=== PATIENT | male | born 1980 | race Caucasian/White ===

== ENCOUNTER 2017-03-16 18:49 | Inpatient (IN) | payer MEDICAID ==
--- NOTE | ~2017-03-16 | DS ---
Unit #: [id number] #: [id number] Patient: LUIS ALBERTO BARBOSA [id number] [address] [address] [id number] I MR#: [id number] NAME: LUIS ALBERTO BARBOSA ROOM: 565 Age: 36 Sex: M Admission Date: 03/16/2017 : 1980 Discharge Date: 03/18/2017 Attending Physician: Jarred Nino M.D. Primary Care Physician: No Primary Care Physician DISCHARGE SUMMARY Discharge is pending Dr. Alejandre evaluation/Our evaluation. HISTORY OF PRESENT ILLNESS/HOSPITAL COURSE Patient is a 36-year-old male who was brought to the emergency department secondary to confusion. He was brought in by the police. He was agitated, confused, and had an elevated temperature of 99.4. In the emergency room, he was given 20 mg of IM Geodon as well as IV Ativan. Normal saline was administered and subsequently, he was admitted to the floor. It was noted his CPK level was elevated at 1100. Initial diagnosis of acute kidney injury as well as acute rhabdomyolysis was made. Through hospital course, he received IV fluids. His initial creatinine was 2.7 today at time of discharge. His creatinine currently stands at 1.3. His other laboratory studies are within normal limits. His CK level was mildly elevated, but he is now tolerating p.o. well. He was placed on a 72-hour hold as we were unsure of his overall mental status. He does tell me that he has a prior history of paranoid schizophrenia. At this point in time, Dr. Alejandre of psychiatry services as well as Our services have been consulted. Once we await their evaluation later this morning, further disposition will be planned accordingly, eight home versus Our at time of discharge. Patient's other radiological studies including CT head did not show any acute process. HIV screen was negative. Chest x-ray was negative. Urine culture was negative. FINAL DISCHARGE DIAGNOSES 1. Acute kidney injury, now resolved. 2. Acute rhabdomyolysis, now improved. 3. History of polysubstance abuse, initial urine tox screen positive for amphetamines and benzodiazepines. 4. Underlying mental illness, paranoid schizophrenia. DISCHARGE MEDICATIONS Tylenol 650 mg p.o. q.6 p.r.n. DISCHARGE DISPOSITION Unit #: [id number] #: [id number] Patient: LUIS ALBERTO BARBOSA To be determined by Dr. Alejandre as well as [facility]. Dictated by... Margarito Piper/kari TD: 03/18/2017 09:15 JOB #: [id number] DISCHARGE SUMMARY Page 1 of 1 X Jarred Nino MD X DISCHARGE SUMMARY
--- NOTE | ~2017-03-16 | EKG ---
PATIENT: LUIS ALBERTO BARBOSA UNIT #: [id number] Ventricular Rate: 137 BPM Atrial Rate: 137 BPM P-R Interval: 118 ms QRS Duration: 82 ms Q-T Interval: 294 ms QTC Calculation(Bezet): 443 ms P [place]: 82 degrees Calculated R [place]: 88 degrees Calculated T [place]: 54 degrees Diagnosis Line: Sinus tachycardia Diagnosis Line: Possible Left atrial enlargement Diagnosis Line: Borderline ECG Diagnosis Line: Diagnosis Line: Confirmed by SHAINA TIAN MD ([id number]) on Diagnosis Line: 03/17/2017 1:31:46 PM INTERPRETING MD: ASMITA MANN
--- NOTE | ~2017-03-16 | HP ---
Unit #: [id number] #: [id number] Patient: LUIS ALBERTO BARBOSA [id number] [address] [address] [id number] I MR#: [id number] NAME: LUIS ALBERTO BARBOSA ROOM: [facility] Age: 36 Sex: M Admission Date: 03/16/2017 : 1980 Attending Physician: Merly Driscoll M.D. Primary Care Physician: No Primary Care Physician HISTORY AND PHYSICAL ADDENDUM Apparently there are conflicting reports. The patient was previously incarcerated, but unsure at this time if patient truly is an escapee from alf. Will determine when patient is more awake and alert. Dictated by Merly Driscoll M.D. AML/ts TD: 03/17/2017 05:11 JOB #: [id number] HISTORY AND PHYSICAL Page 1 of 1 X Merly Driscoll MD X HISTORY AND PHYSICAL
--- NOTE | ~2017-03-16 | CT71 ---
[facility] A Service of [facility] RADIOLOGY TEXT RESULTS PATIENT: LUIS ALBERTO BARBOSA LOCATION: [facility] 565- : [birth year] UNIT #: [id number] AGE: [address]: Jarred Nino MD SEX: M ORDER DR: [id number] [facility] [address]. [place], [place] [address] [id number] I MR#: [id number] Acc #: [id number] NAME: LUIS ALBERTO BARBOSA : 1980 SEX: M STUDY DATE/TIME: 03/16/2017 20:54 UNIT: CEDOF ROOM: 87849 STUDY DESCRIPTION: CT Head Wo Contrast Attending Physician: Merly Driscoll M.D. Ordering Physician: Ramon Osborne M.D. Primary Care Physician: Primary Care Physician No MEDICAL IMAGING REPORT This report is preliminary unless electronic signature is present EXAM CT of the head without contrast INDICATIONS Confusion today. Overdose. TECHNIQUE CT of the head was performed without contrast. This CT exam was performed with one or more of the following radiation dose reduction techniques: Automatic exposure control, adjustment of mA and/or kV according to patient size, and iterative reconstruction. No comparisons. FINDINGS There is no evidence for intracranial hemorrhage, acute cortical based infarction, focal mass lesion or hydrocephalus. Included orbits and paranasal sinuses are unremarkable. The bone windows are unremarkable. IMPRESSION No acute intracranial abnormality. Dictated by... Volodymyr Clark M.D. THIS IS AN ELECTRONICALLY VERIFIED REPORT Volodymyr Clark M.D. at 03/18/2017 7:27 AM HAILY/matheus TD: 03/17/2017 01:52 JOB #: [id number] MEDICAL IMAGING REPORT Page 1 of 1 COPY
--- NOTE | ~2017-03-16 | CO ---
Unit #: [id number] #: [id number] Patient: LUIS ALBERTO BARBOSA 227440 [address] [place], [place] [address] [id number] I MR#: [id number] NAME: LUIS ALBERTO BARBOSA ROOM: 565 Age: 36 Sex: M Admission Date: 03/16/2017 : 1980 Attending Physician: Jarred Nino M.D. Primary Care Physician: No Primary Care Physician Consultation Date: 03/18/2017 CONSULTATION REPORT REASON FOR CONSULTATION Depression, anxiety, substance abuse. HISTORY OF PRESENT ILLNESS Mr. Herrera is a 36-year-old male seen in room 565 bed-1 on 03/18/17 at [facility]. The patient reports that he has used some drugs and admitted in the hospital. The patient reports that he is doing fine now and ready to go. Patient dressed in hospital attire, lying comfortably in bed. Patient was alert, oriented, cooperative, has a sitter. Denied any thoughts of harming self or others. Denied any psychotic symptoms but admitted that he needs some help for his substance abuse. The patient was admitted in confused state, polysubstance abuse, dehydration, acute kidney injury. Found wandering. Patient needed four point restraints and was given Geodon IM 20 mg. Patient's CPK was 1100 at the time of admission. The patient is responding well with the treatment and agreeable for treatment. PAST PSYCHIATRIC HISTORY Unremarkable for any history of any previous treatment but history of substance abuse as mentioned above. Urine drug screen is positive for benzodiazepine and amphetamines. MEDICAL HISTORY Remarkable for no chronic medical illness but recent history of rhabdomyolysis. MEDICATION HISTORY Please refer to MAR. FAMILY HISTORY/SOCIAL HISTORY Patient reported that he has a good support system. No history of any abuse. History of substance abuse as mentioned above. REVIEW OF SYSTEMS Complete review of systems is unremarkable except as mentioned above. MENTAL STATUS EXAMINATION VITAL SIGNS: 97.4, 71, 18, 122/76. Oxygen saturation 100%. GENERAL APPEARANCE: Patient dressed casually in hospital attire. No facial deformities noted. Multiple tattoos on his body. Attention span and concentration fair. Speech - regular rate, coherent. Oriented in time, place and person. Mood and affect labile. Thought process coherent. Thought content - patient denied any thoughts of harming self or others. Recent and remote memory fair. Language - intact. Fund of Unit #: [id number] #: [id number] Patient: LUIS ALBERTO BARBOSA knowledge fair. Insight and judgment fair to slightly impaired. DIAGNOSIS PSYCHIATRIC: 1. 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 Opiate use disorder, moderate - F11.20 3. Delirium - F05, resolved. SECONDARY DIAGNOSIS Deferred. MEDICAL DIAGNOSIS Please refer to H and P. STRESSORS Psychosocial stressor. ASSESSMENT/PLAN 1. Supportive psychotherapy and psychoeducation provided to patient. 2. Educated about benefits and side effects of medication and course and prognosis of illness. 3. Recommending at this time discontinue sitting and the patient may be discharged home if patient is medically stable and follow up in (1) program at [facility] and also given crisis line number, . Please feel free to call if any questions. Telephone number [phone]. Dictated by... Yohan Alejandre M.D. YOSSI/jono TD: 03/19/2017 06:14 JOB #: [id number] CONSULTATION REPORT Page 1 of 1 X Yohan Alejandre MD CONSULTATION REPORT
--- NOTE | ~2017-03-16 | CR72 ---
[facility] A Service of [facility] & [facility] RADIOLOGY TEXT RESULTS PATIENT: LUIS ALBERTO BARBOSA LOCATION: [facility] 565-01 : [birth year] UNIT #: [id number] AGE: [address]: Jarred Nino MD SEX: M ORDER DR: [id number] [facility] [address] [place], [place] [address] [id number] I MR#: [id number] Acc #: [id number] NAME: LUIS ALBERTO BARBOSA : 1980 SEX: M STUDY DATE/TIME: 03/16/2017 19:34 UNIT: [facility] ROOM: 88727 STUDY DESCRIPTION: CR Chest Single View Portable Attending Physician: Merly Driscoll M.D. Ordering Physician: Ramon Osborne M.D. Primary Care Physician: No Primary Care Physician MEDICAL IMAGING REPORT This report is preliminary unless electronic signature is present EXAM Portable chest INDICATIONS Shortness of breath with activity today overdose. No comparisons. FINDINGS The lungs are well expanded. Calcified granuloma in the right base. Heart size is normal. The visualized osseous structures are unremarkable. IMPRESSION No active disease Dictated by... Volodymyr Clark M.D. THIS IS AN ELECTRONICALLY VERIFIED REPORT Volodymyr Clark M.D. at 03/18/2017 7:27 AM HAILY/vivek TD: 03/17/2017 00:54 JOB #: [id number] MEDICAL IMAGING REPORT Page 1 of 1 COPY
--- NOTE | ~2017-03-16 | HP ---
Unit #: [id number] #: [id number] Patient: LUIS ALBERTO BARBOSA [id number] [address] [place], [place] [address] [id number] E MR#: [id number] NAME: LUIS ALBERTO BARBOSA ROOM: Age: 36 Sex: M Admission Date: 03/16/2017 : 1980 Attending Physician: Ramon Osborne M.D. Primary Care Physician: No Primary Care Physician HISTORY AND PHYSICAL CHIEF COMPLAINT Confusion, polysubstance abuse, dehydration, acute kidney injury. HISTORY This 36-year-old male was brought into this emergency department for confusion. The patient was seen confused, walking down the [place]. Police were called and had to place the patient in four-point restraints. He was brought to this facility quite agitated, confused, with a temperature of 99.4. He was given 20 mg of IM Geodon and a milligram of IV Ativan along with a liter of saline with vitamins. He currently is somewhat sedated, does not answer my questions. Labs are notable for dehydration with acute kidney injury, hypernatremia and an elevated CPK to 1100. The patient has the tattoo of his usp number on him; apparently he is an escaped convict after being charged with assault and robbery. PAST MEDICAL HISTORY Unknown. ALLERGIES Unknown. HOME MEDICATIONS Unknown. FAMILY HISTORY Unknown. SOCIAL HISTORY The patient is incarcerated. REVIEW OF SYSTEMS Impossible to obtain. PHYSICAL EXAMINATION GENERAL: A 36-year-old male who is somewhat sunburned, who is confused and somewhat sedated. VITAL SIGNS: Temperature 99.4. Pulse initially 138. Respirations 26. Blood pressure 125/100. Current blood pressure is 131/75. O2 saturation 94% on room air. HEENT: Pupils are somewhat constricted. Pharynx is benign. Unit #: [id number] #: [id number] Patient: LUIS ALBERTO BARBOSA NECK: Supple, without adenopathy or thyromegaly. CHEST: Clear. CARDIAC: Slightly tachycardic, S1 and S2, without murmur. ABDOMEN: Bowel sounds are present. No hepatosplenomegaly, tenderness or masses. EXTREMITIES: Notable for some abrasions over the heels. Pedal pulses are present. No edema. NEUROLOGIC EXAM: Patient is now somewhat sedated and confused. His cranial nerves appear to be intact. He has equal strength throughout. He is not answering my questions, really does not follow much in terms of commands. DIAGNOSTIC STUDIES LABORATORY: Hematocrit is 53.9, white blood count is 20.4, platelet count is 494, one band noted. Cardiac markers negative. SMA-12: Glucose 194, BUN 42, creatinine 2.7, sodium 154, potassium 5.2, CO2 is 15, calcium is 12.1 but his albumin is 6.2 with a protein of 10.3 so patient is quite dehydrated, bilirubin is 2.4, most of which is indirect, AST is 67, CPK is 1100. Acetaminophen, salicylate and alcohol levels are negligible. ABG: pH 7.39, pCO2 37, pO2 94, O2 saturation 95.5%. Urine tox screen positive for benzodiazepines and amphetamines. Urinalysis positive protein, 3+ bacteria, without significant white or red cells. IMAGING: Head CT and chest x-ray show no acute disease. CARDIOVASCULAR: EKG sinus tachycardia, rate 138. ASSESSMENT 1. Dehydration with hypernatremia and acute kidney injury along with mild rhabdomyolysis. Patient was found confused, walking down the [address] and urine toxicology screen is positive for amphetamines along with benzodiazepines. 2. Escaped convict. 3. Polysubstance abuse. 4. Mild rhabdomyolysis. 5. Mildly elevated liver function tests. 6. Confusion, likely related to #1. PLANS 1. Hypotonic IV fluids with bicarb. 2. P.r.n. sedatives. 3. Obtain HIV/ hepatitis screen. 4. SCDs for DVT prophylaxis. 5. Monitor labs very carefully. Dictated by Merly Driscoll M.D. AML/cf TD: 03/16/2017 23:05 JOB #: [id number] Unit #: [id number] #: [id number] Patient: LUIS ALBERTO BARBOSA HISTORY AND PHYSICAL Page 1 of 1 X Merly Driscoll MD HISTORY AND PHYSICAL
[2017-03-16 19:50] LABS: BASOPHIL# 0.1 X10e3 (0-0.3); BASOPHIL% 0.6 % (0-2.5); DIFF IND YES; EOSINOPHIL% 0.1 % (0.0-7.0); HEMATOCRIT 53.9 % (38.0-50.0); HEMOGLOBIN 17.2 gm/dL (13.0-16.0); LYMPHOCYTE# 2.7 X10e3 (1.0-3.5); LYMPHOCYTE% 13.4 % (17.0-45.0); MEAN CELL VOLUME 95.4 FL (83-96); MEAN CORPUSCULAR HEMOGLOBIN 30.5 PG (28-34); MEAN CORPUSCULAR HGB CONC 31.9 g/dL (30-36); MEAN PLATELET VOLUME 8.5 FL (6.5-11.5); MONOCYTE# 1.5 X10e3 (0-1.0); MONOCYTE% 7.4 % (3.0-12.0); NEUTROPHIL% 78.5 % (40-75); PLATELET COUNT 494 X10e3 (140-420); RED BLOOD COUNT 5.65 X10e (3.90-5.60); WHITE BLOOD COUNT 20.4 X10e3 (4.0-10.5)
[2017-03-16 20:10] LABS: PLATELET ESTIMATE NORMAL (NORMAL)
[2017-03-16 20:16] LABS: ALBUMIN SERUM 6.2 g/dL (3.5-5.0); ALKALINE PHOSPHATASE 57 U/L (32-92); AST (SGOT) 67 U/L (10-42); BILIRUBIN, DIRECT 0.4 mg/dL (0.0-0.2); BILIRUBIN,TOTAL 2.4 mg/dL (0.2-2.0); BLOOD UREA NITROGEN 42 mg/dL (9-23); BUN/CREATININE RATIO 15.55; CALCIUM SERUM 12.1 mg/dL (8.4-10.2); CARBON DIOXIDE 15 mmol/L (22-31); CHLORIDE 105 mmol/L (100-111); CREATININE SERUM 2.7 mg/dL (0.6-1.4); GLOM FILT RATE Estimated 16.4 mL/min (>60); GLUCOSE FASTING 194 mg/dL (70-110); POTASSIUM 5.2 mmol/L (3.5-5.1); PROTEIN TOTAL SERUM 10.3 g/dL (6.0-8.3); SALICYLATE <4.0 mg/dL; SODIUM 154 mmol/L (135-145)
[2017-03-16 20:20] LABS: ACETAMINOPHEN <10 ug/mL; ALCOHOL BLOOD <5 mg/dL (0)
[2017-03-16 20:48] LABS: URINE SOURCE CLEAN CATCH
[2017-03-16 20:49] LABS: ALT (SGPT) 34 U/L (10-40)
[2017-03-16 20:55] LABS: ARTERIAL BLD GAS O2 SATURATION 95.5 % (90.0-100.0); ARTERIAL BLOOD GAS CARBOXY HB 0.9 %sat (0.0-9.0); ARTERIAL BLOOD GAS MET HB 0.9 %sat (0.0-2.0); ARTERIAL BLOOD GAS PCO2 37.4 mmHg (35.0-45.0); ARTERIAL BLOOD GAS PO2 94.5 mmHg (80.0-100); ARTERIAL BLOOD GAS pH 7.397 (7.350-7.450)
[2017-03-16 20:56] LABS: ARTERIAL BLOOD GAS ART SITE LEFT BRACHIAL; ARTERIAL DRAW? YES
[2017-03-16 21:02] LABS: AMPHETAMINE POS (NEG); BARBITURATES NEG (NEG); BENZODIAZEPINES POS (NEG); COCAINE NEG (NEG); MARIJUANA NEG (NEG); OPIATES NEG (NEG); TRICYCLIC ANTIDEPRESSANTS NEG (NEG); U METHADONE NEG (NEG)
[2017-03-16 21:25] LABS: URINE APPEARANCE TURBID; URINE COLOR DK YELLOW; URINE GLUCOSE NEG (NEG); URINE ICTOTEST NEG (NEG); URINE LEUKOCYTE ESTERASE NEG (NEG); URINE NITRATE NEG (NEG); URINE PROTEIN 100 (NEG); URINE SPECIFIC GRAVITY 1.025 (1.003-1.035)
[2017-03-16 21:26] LABS: URINE BILIRUBIN NEG (NEG); URINE KETONE NEG (NEG)
[2017-03-16 21:27] LABS: URBCS1 AUWI 0-2 /[HPF] (0-2); URINE BLOOD NEG (NEG)
[2017-03-16 21:28] LABS: CULTURE INDICATED? YES; URINE BACTERIA AUWI 3+ (NEGATIVE); URINE SQUAMOUS EPITHELIAL CELL MODERATE /[HPF]
[2017-03-16 21:32] LABS: POC - CKMB 6.8 ng/mL (0.0-7.9); POC - TROPONIN <0.05 ng/mL (<=0.05)
[2017-03-17 00:37] LABS: BASOPHIL% 0.2 % (0-2.5); LYMPHOCYTE# 1.1 X10e3 (1.0-3.5); LYMPHOCYTE% 8.2 % (17.0-45.0); MEAN CORPUSCULAR HEMOGLOBIN 30.3 PG (28-34); MEAN CORPUSCULAR HGB CONC 33.5 g/dL (30-36); MEAN PLATELET VOLUME 7.4 FL (6.5-11.5); MONOCYTE# 0.9 X10e3 (0-1.0); MONOCYTE% 6.7 % (3.0-12.0); NEUTROPHIL# 10.8 X10e3 (1.5-7.1); NEUTROPHIL% 84.9 % (40-75); PLATELET COUNT 374 X10e3 (140-420); RED BLOOD COUNT 4.87 X10e (3.90-5.60); RED CELL DISTRIBUTION WIDTH 13.8 % (11.0-15.5); WHITE BLOOD COUNT 12.8 X10e3 (4.0-10.5)
[2017-03-17 00:40] LABS: HEMOGLOBIN 14.7 gm/dL (13.0-16.0); MEAN CELL VOLUME 90.5 FL (83-96)
[2017-03-17 00:41] LABS: DIFF IND NO
[2017-03-17 00:50] LABS: INR 1.1; PROTHROMBIN TIME (PATIENT) 11.5 SECONDS (9.6-11.5)
[2017-03-17 01:33] LABS: ALBUMIN SERUM 4.9 g/dL (3.5-5.0); BILIRUBIN,TOTAL 1.3 mg/dL (0.2-2.0); BUN/CREATININE RATIO 22.35; CALCIUM SERUM 9.1 mg/dL (8.4-10.2); CREATININE SERUM 1.7 mg/dL (0.6-1.4); GLOM FILT RATE Estimated 50.1 mL/min (>60); POTASSIUM 4.8 mmol/L (3.5-5.1)
[2017-03-17 07:54] LABS: BASOPHIL# 0.1 X10e3 (0-0.3); BASOPHIL% 0.5 % (0-2.5); DIFF IND NO; EOSINOPHIL# 0.1 X10e3 (0-0.7); EOSINOPHIL% 0.9 % (0.0-7.0); HEMATOCRIT 42.4 % (38.0-50.0); LYMPHOCYTE# 2.2 X10e3 (1.0-3.5); LYMPHOCYTE% 18.5 % (17.0-45.0); MEAN CELL VOLUME 91.3 FL (83-96); MEAN CORPUSCULAR HEMOGLOBIN 30.2 PG (28-34); MEAN CORPUSCULAR HGB CONC 33.1 g/dL (30-36); MEAN PLATELET VOLUME 7.6 FL (6.5-11.5); MONOCYTE# 1.1 X10e3 (0-1.0); MONOCYTE% 9.5 % (3.0-12.0); NEUTROPHIL# 8.4 X10e3 (1.5-7.1); NEUTROPHIL% 70.6 % (40-75); PLATELET COUNT 345 X10e3 (140-420); RED BLOOD COUNT 4.64 X10e (3.90-5.60); WHITE BLOOD COUNT 11.9 X10e3 (4.0-10.5)
[2017-03-17 08:07] LABS: INR 1.1; PROTHROMBIN TIME (PATIENT) 11.5 SECONDS (9.6-11.5)
[2017-03-17 08:28] LABS: ALBUMIN SERUM 4.2 g/dL (3.5-5.0); BILIRUBIN,TOTAL 1.5 mg/dL (0.2-2.0); BUN/CREATININE RATIO 23.07; CALCIUM SERUM 8.8 mg/dL (8.4-10.2); CREATININE SERUM 1.3 mg/dL (0.6-1.4); GLOM FILT RATE Estimated 69.2 mL/min (>60); POTASSIUM 3.8 mmol/L (3.5-5.1)
[2017-03-18] MEDS ORDERED: ACETAMINOPHEN650 M1 PO (10:41)
[2017-03-20 00:58] LABS: HA AB IGM (HEPPAN) Nonreactive (()); HB CORE AB IGM (HEPPAN) Nonreactive (Nonreactive); HB S AG (HEPPAN) Nonreactive (Nonreactive); HEP C AB (HEPPAN) Nonreactive (Nonreactive); HEP C AB SIGNAL TO CUTOFF 0.02 ratio (<1.00)
== END 2017-03-18 19:15 | disposition home or self-care (01) | DRG 683 ==
LOC: EDBD 18:49 → CED 18:49 → CEDOF 23:01 → CED 23:01 → C5C 23:01 → CEDOF 23:45 → C5C 03-17 03:17 → CEDOF 03-17 03:17 → C5C 03-17 08:01
PROVIDERS: Emergency Medicine; Internal Medicine
DX: N17.9 Acute kidney failure, unspecified (principal); E87.0 Hyperosmolality and hypernatremia; F05 Delirium due to known physiological condition; M62.82 Rhabdomyolysis; F11.20 Opioid dependence, uncomplicated; F15.20 Other stimulant dependence, uncomplicated; F20.0 Paranoid schizophrenia; E86.0 Dehydration; R94.5 Abnormal results of liver function studies
CPT/HCPCS: 36600; 70450; 71010; 80048; 80053; 80074; 80076; 80307; 81003; 82550; 82553; 82803; 82947; 84484; 85025; 85610; 85730; 87086; 87806; 93005; 96372; 96374; 99291; G0480; J2060; J3411; J3475; J3486; J7060

== ENCOUNTER 2017-03-28 15:00 | Inpatient (IN) | payer MEDICAID ==
--- NOTE | ~2017-03-28 | DS ---
Unit #: [id number] #: [id number] Patient: LUIS ALBERTO BARBOSA [id number] [facility] [address] [place] [address] [id number] I MR#: [id number] NAME: LUIS ALBERTO BARBOSA ROOM: [facility] Age: 36 Sex: M Admission Date: 03/28/2017 : 1980 Discharge Date: Attending Physician: Yohan Alejandre M.D. DISCHARGE SUMMARY REASON FOR ADMISSION Depression, anxiety, and amphetamine abuse. HOSPITAL COURSE The patient was admitted to outpatient program, treated with group therapy, individual therapy, and medication management. The patient presented with paranoid thinking, anxiety, history of methamphetamine abuse. The patient responded well with the above modalities of treatment on following medication; Wellbutrin, Geodon, and Vistaril. Subsequently, the patient was discharged with a plan to follow up in outpatient program. DISCHARGE MEDICATIONS 1. Wellbutrin XL 150 mg in the morning for mood symptom. 2. Geodon 40 mg daily for mood stabilization and psychosis. 3. Vistaril 25 mg t.i.d. for anxiety. DISCHARGE DIAGNOSES Psychiatric: Amphetamine use disorder, moderate, F15.20; anxiety disorder, not otherwise specified, F40.01; bipolar mood disorder, not otherwise specified, F31.89. Secondary diagnosis: Deferred. Medical diagnosis: None. Stressors: Psychosocial stressor. DISCHARGE INSTRUCTIONS The patient is to follow up in outpatient clinic as per social service coordinator. CONDITION ON DISCHARGE The patient was pleasant and cooperative. Denied any psychotic symptom or any suicidal ideation. PROGNOSIS Guarded. DIET AND ACTIVITY As tolerated. Dictated by... Yohan Alejandre M.D. Unit #: [id number] #: [id number] Patient: LUIS ALBERTO BARBOSA SZC/modl TD: 03/28/2017 16:32 JOB #: [id number] DISCHARGE SUMMARY Page 1 of 1 X Yohan Alejandre MD X DISCHARGE SUMMARY
--- NOTE | ~2017-03-28 | PN ---
Unit #: [id number] #: [id number] Patient: LUIS ALBERTO BARBOSA [id number] [facility] [address] [place] [address] [id number] I MR#: [id number] NAME: LUIS ALBERTO BARBOSA ROOM: [facility] Age: 36 Sex: M Admission Date: 03/28/2017 : 1980 Attending Physician: Yohan Alejandre M.D. Admitting Physician: Margarito Noble PROGRESS NOTES DATE OF SERVICE: 03/29/2017 DISCUSSION Mr. Herrera is a 36-year-old male, seen on 03/29/2017. The patient's vital signs; temperature 98.3, heart rate 73, and blood pressure 88/55. The patient guarded, paranoid, disorganized thought process, attending to internal stimuli. REVIEW OF SYSTEMS Complete review of systems unremarkable. MENTAL STATUS EXAMINATION General appearance, the patient dressed casually. Attention span and concentration, poor. Orientation in self. Mood and affect, labile. Speech, rapid and disorganized. Thought process, circumstantial and guarded. The patient denied any thoughts of harming self or others, but guarded and paranoid. Recent and remote memory, poor. Insight and judgment, poor. DIAGNOSES Psychosis, not otherwise specified and polysubstance abuse. ASSESSMENT AND PLAN Advised to continue with current medication and therapeutic protocol. If needed, consider further adjustment of medication. Dictated by... Margarito Noble/mikayla TD: 03/29/2017 14:12 JOB #: [id number] Unit #: [id number] #: [id number] Patient: LUIS ALBERTO BARBOSA PROGRESS NOTES Page 1 of 1 X Yohan Alejandre MD PROGRESS NOTE
--- NOTE | ~2017-03-28 | PA ---
Unit #: [id number] #: [id number] Patient: LUIS ALBERTO BARBOSA [id number] [facility] [address] [place] [address] [id number] I MR#: [id number] NAME: LUIS ALBERTO BARBOSA ROOM: P210 Age: 36 Sex: M Admission Date: 03/28/2017 : 1980 Date of Assessment: Attending Physician: Yohan Alejandre M.D. Admitting Physician: Yohan Alejandre M.D. PSYCHIATRIC ASSESSMENT INFORMANTS The patient reliability, fair informant and chart reliability, good. CHIEF COMPLAINT Substance abuse. HISTORY OF PRESENT ILLNESS Mr. Herrera is a 36-year-old male, presented in a psychotic state, admitted using substances, thoughts were disorganized, and disorganized behavior. The patient reported needing help. Reported that he has been using several substances including meth and Xanax. The patient reported that he has a history of schizophrenia and mood disorder. The patient reported that he has not been taking his medication in the last 3 days. Reported he believes that the others are trying to kill him. The patient reports recently admitted to [facility] when he was found wandering for almost 2 days. The patient reported he does not recall last eat or drink. The patient was disoriented at the time of admission, guarded, paranoid, and hearing voices. Needing inpatient admission at this time for psychiatric stabilization. PAST PSYCHIATRIC HISTORY Remarkable for history of previous treatment in [place] and in intermediate system. FAMILY HISTORY AND SOCIAL HISTORY The patient has a poor support system. No history of any abuse. MEDICAL HISTORY Unremarkable. Musculoskeletal; muscle strength and tone, no atrophy or abnormal movement. Gait normal. MEDICATION HISTORY The patient was treated with Wellbutrin, Geodon, and Vistaril in [facility] level of care. ALLERGIES No known drug allergies. SUBSTANCE ABUSE HISTORY The patient reported using tobacco, age of onset 13; marijuana, age of onset 13; crack cocaine, age of onset 11; amphetamine, age of onset 36; benzodiazepine, age of onset 36; and synthetic substances, age of onset 36. Unit #: [id number] #: [id number] Patient: LUIS ALBERTO BARBOSA REVIEW OF SYSTEMS HEENT: Eyes, clear. Ears, nose, mouth, and throat; clear. CARDIOVASCULAR: Unremarkable. RESPIRATORY: Unremarkable. GI: Unremarkable. : Unremarkable. SKIN: Unremarkable. LYMPH NODE: Unremarkable. NEUROLOGIC: Unremarkable. ENDOCRINE: Unremarkable. HEMATOLOGIC: Unremarkable. ALLERGIC/IMMUNOLOGIC: Unremarkable. MUSCULOSKELETAL: Muscle strength and tone, no atrophy or abnormal movement. Gait normal. MENTAL STATUS EXAMINATION CONSTITUTIONAL: Measurement of vital signs; temperature 98.3, heart rate 73, respiratory rate 20, oxygen saturation 96%, and blood pressure 88/55. Height 5 feet 7 inches and weight 164 pounds. GENERAL APPEARANCE: The patient dressed casually. The patient did not show any facial deformity. Noted multiple tattoos on his body. MUSCULOSKELETAL: Please see above. PSYCHIATRIC EXAMINATION Description of speech, rapid and disorganized. Description of thought process, disorganized. Description of association, disorganized. Description of abnormal psychotic thinking; guarded, paranoid, attending to internal stimuli, mood lability, and substance abuse. Description of the patient's judgment, concerning everyday activity, poor. Social situation, poor. Concerning psychiatric condition, poor. Complete mental status examination; oriented in self. Mood and affect, labile speech. Attention span and concentration poor. Language, fair. Fund of knowledge, poor. Vocabulary, poor. Insight and judgment, impaired. ASSETS AND LIABILITIES Assets, the patient is articulate and able to take care of his ADL. Liability, history of substance abuse and psychosis. ADMITTING DIAGNOSES Psychiatric: Psychosis, not otherwise specified, F29.0; cocaine use disorder, severe, F14.20; and amphetamine use disorder, severe, F15.20. Secondary diagnosis: Deferred. Medical diagnosis: None. Stressors: Psychosocial stressors. PSYCHIATRIC PLAN AND TREATMENT GOAL AND DISCHARGE PLAN 1. Advised to admit the patient on the inpatient unit. Provide safe, supportive, and structured environment. 2. Ordered labs; CBC, CMP, UA, and UDS. 3. Precaution for aggression, self-harm, and psychosis. 4. Detox protocol and detox monitoring. 5. The patient to resume medications such as Geodon 40 mg b.i.d. Unit #: [id number] #: [id number] Patient: LUIS ALBERTO BARBOSA TREATMENT GOAL To attain euthymic mood and control psychotic symptom. DISCHARGE PLAN Plan to stabilize the patient and consider followup in outpatient program ESTIMATED LENGTH OF STAY 3 to 5 days. Dictated by... Yohan Z. Margarito Alejandre TD: 03/29/2017 20:11 JOB #: [id number] PSYCHIATRIC ASSESSMENT Page 1 of 1 X Yohan Alejandre MD PSYCHIATRIC ASSESSMENT
--- NOTE | ~2017-03-28 | DS ---
Unit #: [id number] #: [id number] Patient: LUIS ALBERTO BARBOSA [id number] [facility] [address] [place] [address] [id number] I MR#: [id number] NAME: LUIS ALBERTO BARBOSA ROOM: [facility] Age: 36 Sex: M Admission Date: 03/28/2017 : 1980 Discharge Date: 03/31/2017 Attending Physician: Yohan Alejandre M.D. Primary Care Physician: Primary Care Physician No DISCHARGE SUMMARY REASON FOR ADMISSION Detox, psychosis. DIAGNOSTIC STUDIES LABORATORY RESULTS: Unremarkable except urine drug screen positive for benzos and amphetamine. HOSPITAL COURSE The patient was admitted to inpatient unit on 03/28/2017 and discharged on 03/31/2017. The patient was treated with detox protocol, detox monitoring, expressive therapy, chemical dependency group. The patient responded well with the above modalities of treatment. Subsequently, the patient was discharged with a plan to follow up in outpatient program. DISCHARGE MEDICATIONS Neurontin 300 mg t.i.d. for anxiety and mood stabilization, Geodon 40 mg b.i.d. for psychosis. DISCHARGE DIAGNOSES Psychiatric: Psychosis, not otherwise specified, F29.0; history of schizophrenia, chronic paranoid type, F20.0; cocaine use disorder, severe, F14.20; amphetamine use disorder, severe, F15.20. Secondary diagnosis: Deferred. Medical diagnosis: None. Stressors: Psychosocial stressors. DISCHARGE INSTRUCTIONS The patient to follow up in outpatient clinic as per hospital social worker. CONDITION ON DISCHARGE The patient was pleasant and cooperative. Denied any psychotic symptom or any suicidal ideation. PROGNOSIS Guarded. DIET AND ACTIVITY As tolerated. Unit #: [id number] #: [id number] Patient: LUIS ALBERTO BARBOSA Dictated by... Yohan Alejandre M.D. SZC/julienl TD: 03/31/2017 23:32 JOB #: [id number] DISCHARGE SUMMARY Page 1 of 1 X Yohan Alejandre MD X DISCHARGE SUMMARY
--- NOTE | ~2017-03-28 | PN ---
Unit #: [id number] #: [id number] Patient: LUIS ALBERTO BARBOSA [id number] [facility] [address] [place] [address] [id number] I MR#: [id number] NAME: LUIS ALBERTO BARBOSA ROOM: P210 Age: 36 Sex: M Admission Date: 03/28/2017 : 1980 Attending Physician: Yohan Alejandre M.D. Admitting Physician: Yohan Alejandre M.D. Primary Care Physician: Ivania Primary Care Physician [facility] PROGRESS NOTES DATE 03/30/2017 DISCUSSION Mr. Herrera is a 36-year-old male, who obtained information from nursing staff. Patient tolerated information fairly well. Patient reported that he would like to go to a residential program. Patient is still somewhat guarded, paranoid, isolative, flat affect. . REVIEW OF SYSTEMS Complete review of system unremarkable. MENTAL STATUS EXAMINATION General appearance, the patient dressed casually. Attention span and concentration, fair. Oriented in place and person. Mood and affect, sad, dysphoric and flat. Speech, monotone. Thought process, concrete. The patient denied any suicidal or homicidal ideation but somewhat guarded. Recent and remote memory, poor. Insight and judgment, poor. DIAGNOSES 1. Psychosis, NOS. 2. Polysubstance abuse. ASSESSMENT AND PLAN Advised to continue with current medication and therapeutic protocol, if needed. Consider further adjustment of medication, if needed. Dictated by... Margarito Noble/christiane TD: 03/31/2017 12:46 JOB #: [id number] Unit #: [id number] #: [id number] Patient: LUIS ALBERTO BARBOSA [facility] PROGRESS NOTES Page 1 of 1 X Yohan Alejandre MD X PROGRESS NOTE
--- NOTE | ~2017-03-28 | HP ---
Unit #: [id number] #: [id number] Patient: LUIS ALBERTO BARBOSA [id number] [place] [address] [id number] I MR#: [id number] NAME: LUIS ALBERTO BARBOSA ROOM: P210 Age: 36 Sex: M Admission Date: 03/28/2017 : 1980 Attending Physician: Yohan Alejandre M.D. Admitting Physician: Yohan Alejandre M.D. Primary Care Physician: Primary Care Physician No HISTORY AND PHYSICAL HISTORY OF PRESENT ILLNESS The patient is a 36-year-old male admitted to [address] [place] [address] on 03/28/2017 for psychosis and polysubstance abuse. PAST MEDICAL HISTORY The patient was recently admitted to [facility] for dehydration and rhabdomyolysis. He denies any residual problems from this. PAST SURGICAL HISTORY The patient denies. SOCIAL HISTORY He is unemployed and homeless. He smokes one pack of cigarettes daily and has a history of polysubstance abuse including marijuana, cocaine, methamphetamines, benzos and spice. FAMILY MEDICAL HISTORY Noncontributory. ALLERGIES No known drug allergies. CURRENT MEDICATIONS The patient is not on any home medications REVIEW OF SYSTEMS CONSTITUTIONAL: No fever or chills. HEENT: Denies any sore throat, ear pain or runny nose. CARDIOVASCULAR: Denies chest pain, irregular heart rhythm or palpitations. CHEST: Denies shortness of breath or cough. No hemoptysis. GASTROINTESTINAL: Denies nausea, vomiting, diarrhea or chronic constipation. ENDOCRINE: Denies history of increased thirst or urination. No recent significant weight loss or gain. GENITOURINARY: Denies dysuria, frequency, or hematuria. SKIN: Denies any rashes. HEMATOLOGIC: Denies history of increased bleeding or bruising. MUSCULOSKELETAL: Denies any hot, swollen joints. No generalized muscle pain. NEUROLOGIC: Denies problems with vision or speech. No frequent, severe headaches. No numbness, tingling or weakness in any extremities. Denies loss of bladder or bowel control. PHYSICAL EXAM Unit #: [id number] #: [id number] Patient: LUIS ALBERTO BARBOSA GENERAL: He is awake, alert and oriented in no acute distress. VITAL SIGNS: Temperature 97.9, heart rate 78, respiration 20, blood pressure 108/72. HEIGHT: 5'7". WEIGHT: 164 pounds. SKIN: Warm and dry without rash or lesion. HEENT: Normocephalic. TMs not viewed. Oral and nasal passages clear. Conjunctivae clear. PERRLA. EOMs intact. NECK: Supple without lymphadenopathy or thyromegaly. HEART: Regular rate and rhythm without murmur. LUNGS: Clear. ABDOMEN: Soft, nontender. : Not done. EXTREMITIES: No evidence of cyanosis, clubbing or edema. Moves all without focal deficit. NEUROLOGICAL: Grossly within normal limits. Cranial Nerves: II: Visual pavon are intact. III, IV AND : Extraocular movements are intact. Pupils are equal, round and reactive to light. V: Facial sensation is grossly normal. VII: Facial movements and expression are normal. VIII: Auditory acuity grossly intact. IX, X: Uvula is midline. Phonation is normal. XI: Patient shrugs shoulders and turns head normally. XII: Tongue protrudes in the midline. Sensory and Motor Function: Sensory and motor sensation is grossly normal. Motor: moves all extremities well. IMPRESSION 1. Psychiatric admission 2. Polysubstance abuse 3. Nicotine dependence 4. Recent hospitalization for dehydration and rhabdomyolysis. RECOMMENDATIONS Psychiatric per psychiatrist. MEDICAL: No contraindication to participate in facility activities. MEDICAL PROGNOSIS Good. MEDICAL CONDITION Stable. Dictated by... Zoraida Mar/rip TD: 03/30/2017 03:49 JOB #: [id number] Unit #: [id number] #: [id number] Patient: LUIS ALBERTO BARBOSA HISTORY AND PHYSICAL Page 1 of 1 X J CARLOS SHARMA APRN HISTORY AND PHYSICAL
--- NOTE | ~2017-03-28 | PN ---
Unit #: [id number] #: [id number] Patient: LUIS ALBERTO BARBOSA [id number] [facility] [address] [place] [address] [id number] I MR#: [id number] NAME: LUIS ALBERTO BARBOSA ROOM: P210 Age: 36 Sex: M Admission Date: 03/28/2017 : 1980 Attending Physician: Yohan Alejandre M.D. Admitting Physician: Yohan Alejandre M.D. [facility] PROGRESS NOTES DATE OF SERVICE: 03/23/2017 DISCUSSION Mr. Herrera is a 36-year-old male, seen on 03/23/2017. The patient interviewed, chart reviewed, and obtained information from nursing staff. The patient reported history of depression, anxiety, and amphetamine abuse. The patient reported making progress, still having problem with the anxiety, but denied any thoughts of harming self or others. Participating in the program, maintaining safe behavior. The patient did not show any aggression. The patient is tolerating medication fairly well. Currently, on Wellbutrin, Geodon, and Vistaril. REVIEW OF SYSTEMS Complete review of systems, unremarkable. MENTAL STATUS EXAMINATION General appearance, the patient dressed casually. Attention span and concentration, fair. Oriented in time, place, and person. Mood and affect, sad and dysphoric. Speech, monotone. Thought process, concrete. The patient denied any thoughts of harming self or others. He denied any psychotic symptom. Recent and remote memory, poor. Insight and judgment, poor. DIAGNOSES Amphetamine use disorder, moderate, F15.20; anxiety disorder, not otherwise specified, F40.01; and bipolar mood disorder, not otherwise specified, F31.89. ASSESSMENT AND PLAN 1. Supportive psychotherapy, psychoeducation provided to the patient. 2. Educated about benefits and side effects of medication and course and prognosis of illness. 3. Advised to continue with current medications, Wellbutrin XL 150 mg in the morning, Geodon 40 mg at bedtime, and Vistaril 25 mg three times a day. Please feel free to call if any question, and we will continue to follow. Dictated by... Yohan Alejandre M.D. [facility] [place] [place] Unit #: [id number] #: [id number] Patient: LUIS ALBERTO BARBOSA TD: 03/29/2017 17:51 JOB #: [id number] [facility] PROGRESS NOTES Page 1 of 1 X Yohan Alejandre MD PROGRESS NOTE
[~2017-03-28 15:00] MED LIST: ACETAMINOPHEN650 M1 PO
[2017-03-29 11:35] LABS: BASOPHIL# 0.1 X10e3 (0-0.3); BASOPHIL% 0.8 % (0-2.5); EOSINOPHIL# 0.7 X10e3 (0-0.7); EOSINOPHIL% 10.9 % (0.0-7.0); HEMATOCRIT 41.9 % (38.0-50.0); LYMPHOCYTE# 1.6 X10e3 (1.0-3.5); LYMPHOCYTE% 25.9 % (17.0-45.0); MEAN CELL VOLUME 91.5 FL (83-96); MEAN CORPUSCULAR HEMOGLOBIN 30.6 PG (28-34); MEAN CORPUSCULAR HGB CONC 33.4 g/dL (30-36); MEAN PLATELET VOLUME 7.5 FL (6.5-11.5); MONOCYTE# 0.4 X10e3 (0-1.0); MONOCYTE% 6.8 % (3.0-12.0); NEUTROPHIL# 3.4 X10e3 (1.5-7.1); NEUTROPHIL% 55.6 % (40-75); PLATELET COUNT 359 X10e3 (140-420); RED BLOOD COUNT 4.57 X10e (3.90-5.60); RED CELL DISTRIBUTION WIDTH 13.9 % (11.0-15.5); WHITE BLOOD COUNT 6.1 X10e3 (4.0-10.5)
[2017-03-29 11:39] LABS: DIFF IND NO
[2017-03-29 11:53] LABS: ALBUMIN SERUM 3.9 g/dL (3.5-5.0); BILIRUBIN,TOTAL 0.5 mg/dL (0.2-2.0); CALCIUM SERUM 9.1 mg/dL (8.4-10.2); GLOM FILT RATE Estimated 95.1 mL/min (>60); POTASSIUM 4.7 mmol/L (3.5-5.1); PROTEIN TOTAL SERUM 6.4 g/dL (6.0-8.3)
== END 2017-03-31 11:35 | disposition home or self-care (01) | DRG 885 ==
LOC: P2S 17:06
PROVIDERS: Psychiatry & Neurology Psychiatry
PROC: HZ2ZZZZ Detoxification Services for Substance Abuse Treatment (ICD-10-PCS; principal; 2017-03-28)
DX: F29 Unspecified psychosis not due to a substance or known physiological condition (principal); F14.20 Cocaine dependence, uncomplicated; F15.20 Other stimulant dependence, uncomplicated; F41.9 Anxiety disorder, unspecified; F40.01 Agoraphobia with panic disorder
CPT/HCPCS: 80053; 85025; 86592

== ENCOUNTER 2017-05-12 10:06 | Inpatient (IN) | payer MEDICAID ==
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
--- NOTE | ~2017-05-12 | DS ---
Unit #: [id number] #: [id number] Patient: LUIS ALBERTO BARBOSA [id number] [facility] [place] [address] [id number] I MR#: [id number] NAME: LUIS ALBERTO BARBOSA ROOM: P113 Age: 36 Sex: M Admission Date: 05/12/2017 : 1980 Discharge Date: 05/13/2017 Attending Physician: Mikey Bose M.D. Primary Care Physician: Generic Doctor Not In System DISCHARGE SUMMARY IDENTIFYING DATA Mr. Pablo is a 36-year-old white male, who is a resident of [place], [place], and was self-referred to the hospital. DISCHARGE DIAGNOSES Psychiatric: Bipolar disorder, most recent episode depressed, recurrent, moderate, without psychosis. Medical: None. Stressors: Moderate psychosocial stressors. HISTORY OF PRESENT ILLNESS Please see initial psychiatric evaluation for details. PAST PSYCHIATRIC HISTORY Please see initial psychiatric evaluation for details. PAST MEDICAL HISTORY Please see initial psychiatric evaluation for details. HOSPITAL COURSE The patient was admitted to the adult psychiatric unit at [facility] and was oriented to the hospital environment. Routine p.r.n. medications were initiated and he was started back on his home medications and Geodon was increased and Depakote was added at 500 mg b.i.d. as a second mood stabilizer and was closely monitored. He was taking medications regularly and was tolerating them fairly well and was able to show a decent and therapeutic response with improvement in depression, anxiety, irritability, and was denying any suicidal ideation, intent, or plan and was not seen to be danger to self or anyone else and as such, it was decided that he will be discharged home and will continue treatment on an outpatient basis. DISCHARGE CONDITION Stable. PROGNOSIS Fair. Dictated by... Mikey Bose M.D. IAA/modl Unit #: [id number] #: [id number] Patient: LUIS ALBERTO BARBOSA TD: 06/17/2017 07:44 JOB #: [id number] DISCHARGE SUMMARY Page 1 of 1 X Mikey Bose MD X DISCHARGE SUMMARY
--- NOTE | ~2017-05-12 | HP ---
Unit #: [id number] #: [id number] Patient: LUIS ALBERTO BARBOSA [id number] [place] [address] [id number] I MR#: [id number] NAME: LUIS ALBERTO BARBOSA ROOM: 13 Age: 36 Sex: M Admission Date: 05/12/2017 : 1980 Attending Physician: Mikey Bose M.D. Admitting Physician: Mikey Bose M.D. Primary Care Physician: Generic Doctor Not In System HISTORY AND PHYSICAL HISTORY OF PRESENT ILLNESS Luis Alberto is a 36 year old admitted to [address] [place] [address] with psychotic behavior. He has had other admissions to this facility. He has evidently had a p.r.n. because of his behavior. He is very sedated and not arousable. Exam is limited. History is taken from his chart. PAST MEDICAL HISTORY Nothing significant. PAST SURGICAL HISTORY Nothing reported. ALLERGIES No known drug allergies. SOCIAL HISTORY Smokes one pack per day. Drinks alcohol on occasion. Has a history of illicit substance abuse to include heroin, amphetamines, benzodiazepines and spice. FAMILY HISTORY Medically not known. REVIEW OF SYSTEMS He does not answer any questions. Nursing staff reports no nausea, vomiting or diarrhea. He has had no cough or increased temperature. He was involved in a management just after admission and he did complain of bilateral rib pain but not shortness of breath. CURRENT MEDICATIONS 1. Desyrel 100 mg q.h.s. 2. Geodon 40 mg b.i.d. 3. Neurontin 300 mg t.i.d. 4. Thorazine 100 mg q.6 hours p.r.n. 5. Milk of Magnesia p.r.n. 6. Maalox p.r.n. 7. Tylenol p.r.n. 8. Nicotine patch 14 mg q day PHYSICAL EXAMINATION GENERAL: He is laying in bed unable to arouse. VITAL SIGNS: Blood pressure 114/70, heart rate 72, respirations 16, Unit #: [id number] #: [id number] Patient: LUIS ALBERTO BARBOSA temperature 98.6. WEIGHT: 164 pounds. HEIGHT: 5'7". SKIN: Unable to assess. HEENT: Unable to assess. NECK: Unable to assess. HEART: Regular rate and rhythm. Chest, lung clear. No obvious bruising or gross deformity noted about anterior or lateral ribs. ABDOMEN: Soft nontender. EXTREMITIES: No edema. NEUROLOGICAL: Hand resource director is equal. Gait not observed. IMPRESSION Psychiatric admission. RECOMMENDATIONS PSYCHIATRIC: Per psychiatrist. MEDICAL: 1. I see no contraindications to participating in facility's activities. 2. Obtain routine chest x-ray with rib views. MEDICAL PROGNOSIS Good. MEDICAL CONDITION Stable. Dictated by... Rosemary Quigley P.A.-C. for Margarito Piper/rip TD: 05/13/2017 05:16 JOB #: [id number] HISTORY AND PHYSICAL Page 1 of 1 X Rosemary Quigley X HISTORY AND PHYSICAL
[2017-05-13 09:37] LABS: BASOPHIL% 0.9 % (0-2.5); EOSINOPHIL# 0.4 X10e3 (0-0.7); EOSINOPHIL% 7.4 % (0.0-7.0); HEMATOCRIT 43.2 % (38.0-50.0); HEMOGLOBIN 14.4 gm/dL (13.0-16.0); LYMPHOCYTE# 1.8 X10e3 (1.0-3.5); LYMPHOCYTE% 33.3 % (17.0-45.0); MEAN CORPUSCULAR HEMOGLOBIN 30.4 PG (28-34); MEAN CORPUSCULAR HGB CONC 33.4 g/dL (30-36); MEAN PLATELET VOLUME 7.1 FL (6.5-11.5); MONOCYTE# 0.5 X10e3 (0-1.0); MONOCYTE% 8.5 % (3.0-12.0); NEUTROPHIL# 2.7 X10e3 (1.5-7.1); NEUTROPHIL% 49.9 % (40-75); PLATELET COUNT 342 X10e3 (140-420); RED BLOOD COUNT 4.74 X10e (3.90-5.60); RED CELL DISTRIBUTION WIDTH 13.3 % (11.0-15.5); WHITE BLOOD COUNT 5.4 X10e3 (4.0-10.5)
[2017-05-13 09:51] LABS: DIFF IND NO
[2017-05-13 09:59] LABS: THYROID STIMULATING HORMONE 0.53 uIU/ml (0.34-5.60)
[2017-05-13 10:05] LABS: ALBUMIN SERUM 3.9 g/dL (3.5-5.0); BILIRUBIN,TOTAL 0.9 mg/dL (0.2-2.0); BUN/CREATININE RATIO 17.5; CALCIUM SERUM 8.9 mg/dL (8.4-10.2); CREATININE SERUM 1.2 mg/dL (0.6-1.4); GLOM FILT RATE Estimated 76.3 mL/min (>60); POTASSIUM 4.1 mmol/L (3.5-5.1); PROTEIN TOTAL SERUM 6.7 g/dL (6.0-8.3)
[2017-05-13 10:06] LABS: FREE THYROXIN (T4) 1.14 ng/dL (0.58-1.64)
== END 2017-05-13 19:19 | disposition home or self-care (01) | DRG 885 ==
LOC: P1S 10:33
PROVIDERS: Psychiatry & Neurology Psychiatry
DX: F25.0 Schizoaffective disorder, bipolar type (principal); F15.20 Other stimulant dependence, uncomplicated; F19.20 Other psychoactive substance dependence, uncomplicated; F17.210 Nicotine dependence, cigarettes, uncomplicated
CPT/HCPCS: 80053; 84439; 84443; 85025